=== PATIENT | male | born 1950 | race Hispanic/Latino ===

== ENCOUNTER 2017-08-06 07:26 | Emergency (ER) | payer MEDICARE ==
[2017-08-06] MEDS ORDERED: TORADOL IV ONE (10:18)
[2017-08-06 10:42] LABS: Urine Drugs of Abuse Note Disclamer
[2017-08-06 10:54] LABS: Bacteria,Urine 1+ /HPF (Negative); Bilirubin,Urine NEG (Negative); Blood,Urine SM (Negative); Ketones,Urine TR mg/dL (Negative); Leukocyte Esterase,Urine NEG (Negative); Mucus,Urine FEW /HPF; Nitrite,Urine NEG (Negative); Protein,Urine <15 mg/dL mg/dL (Negative); Urobilinogen,Urine < 2.0 mg/dL (<2.0)
[2017-08-06 11:18] LABS: Alanine Aminotransferase 26 units/L (7-56); Albumin 4.3 g/dL (3.9-5); Albumin/Globulin Ratio 1.2 %; Alkaline Phosphatase 137 units/L (35-129); Anion Gap 20 mmol/L; Blood Urea Nitrogen 20 mg/dL (9-20); Calcium 9.3 mg/dL (8.4-10.2); Carbon Dioxide 25 mmol/L (22-30); Chloride 95.9 mmol/L (98-107); Glucose 231 mg/dL (75-100); Sodium 137 mmol/L (137-145); Total Protein 7.9 g/dL (6.3-8.2)
--- NOTE | 2017-08-06 11:31 | Ultrasound Report ---
Testicular sonogram: History: Right testicular pain. Findings: Right testis measures 3 x 3.4 x 2.5 cm. Uniform echogenicity with normal color flow. The right epididymis does not appear enlarged. Cyst is noted at the head of the epididymis measuring 0.4 x 0.4 x 0.5 cm. Smaller cyst is also identified. Left testes measures 2.9 x 2.2 x 3.4 cm. Uniform echogenicity with normal color flow. No definite enlargement of the epididymis. A cyst in the head of epididymis measures 1 x 1.2 cm. There is fluid noted in the right and left scrotal sac. The fluid in the right and left scrotal sac measures approximately 1.6 cm in diameter. Impression: No definite evidence of acute epididymitis or orchitis. Findings as detailed above.
[2017-08-06 11:34] LABS: Basophils % (Auto) 0.7 % (0.0-1.8); Eosinophils % (Auto) 1.1 % (0.0-4.3); Hemoglobin 10.7 gm/dl (11.8-15.2); Mean Corpuscular HGB Conc 34 % (32-34); Mean Corpuscular Hemoglobin 29 pg (28-32); Mean Corpuscular Volume 86 fl (84-94); Platelet Count 233 K/mm3 (140-440); Red Blood Count 3.74 M/mm3 (3.65-5.03); White Blood Count 6.4 K/mm3 (4.5-11.0)
--- NOTE | 2017-08-06 14:35 | XRay Report ---
FINAL REPORT EXAM: XR CHEST ROUTINE 2V HISTORY: sob TECHNIQUE: Chest, portable PRIORS: None. FINDINGS: Limited study. Only one view submitted which excludes the lung bases. Visualized portions of the chest are clear. No pneumothorax seen IMPRESSION: Very limited. Submitted image excludes the lung bases. Visualized lungs are clear.
[2017-08-06] MEDS ORDERED: ULTRAM PO ONE (15:25)
[2017-08-06 15:30] VITALS: BP 138/82
--- NOTE | 2017-08-06 19:47 | Emergency Department Report ---
Entered by DANIEL CLAY, acting as scribe for JEANNIE SANCHEZ NP. <RIKI PASCUAL - Last Filed: 08/06/17 14:37> ED General Adult HPI - General Chief complaint: Pain General Stated complaint: PAIN Time Seen by Provider: 08/06/17 10:04 - Related Data Previous Rx's Medication Instructions Recorded Last Taken Type Aspirin [Aspirin BABY CHEW TAB] 81 mg PO QDAY #30 tab.chew 10/03/16 10/25/16 Rx Gabapentin [Neurontin] 300 mg PO Q8HR #60 capsule 10/23/16 10/25/16 Rx traMADol [Ultram] 50 mg PO Q6HR PRN #15 tablet 08/06/17 Unknown Rx Allergies Allergy/AdvReac Type Severity Reaction Status Date / Time No Known Allergies Allergy Verified 11/22/16 11:10 ED Review of Systems ROS: Stated complaint: PAIN Other details as noted in HPI ED Past Medical Hx - Medications Home Medications: Home Medications Medication Instructions Recorded Confirmed Last Taken Type Aspirin [Aspirin BABY CHEW TAB] 81 mg PO QDAY #30 tab.chew 10/03/16 10/25/16 Rx Gabapentin [Neurontin] 300 mg PO Q8HR #60 capsule 10/23/16 10/25/16 10/25/16 Rx traMADol [Ultram] 50 mg PO Q6HR PRN #15 tablet 08/06/17 Unknown Rx ED Course Vital Signs 08/06/17 08/06/17 08/06/17 07:33 10:39 15:30 Temperature 98.8 F Pulse Rate 99 H 72 Respiratory 16 20 18 Rate Blood Pressure 152/69 Blood Pressure 138/82 [Right] O2 Sat by Pulse 100 Oximetry ED Medical Decision Making - Lab Data Result diagrams: 08/06/17 10:35 08/06/17 10:35 - Medical Decision Making I have seen and examined this patient myself. I agree with the PA or MIDDLE STITCHER plan as discussed. Tre Pascual Critical care attestation.: If time is entered above; I have spent that time in minutes in the direct care of this critically ill patient, excluding procedure time. ED Disposition Clinical Impression: Chronic pain syndrome, Testicle pain Hypertension Qualifiers: Hypertension type: essential hypertension Qualified Code(s): I10 - Essential ( primary) hypertension Type 2 diabetes mellitus Qualifiers: Diabetes mellitus complication status: with neurologic complications Diabetes mellitus complication detail: with unspecified neuropathy Diabetes mellitus intermediate accountant insulin use: unspecified intermediate accountant insulin use status Qualified Code(s ): E11.40 - Type 2 diabetes mellitus with diabetic neuropathy, unspecified Disposition: DC-01 TO HOME OR SELFCARE Condition: Stable Instructions: Diabetes Mellitus Type 2 in Adults (ED), Hypertension (ED) Additional Instructions: Follow up with a PCP in the next 3-5 days You will need to be started on medication for your DM and HTN No driving or alcohol after taking Ultram for pain follow up here for your mental health needs [facility] Address: [address] , [place] [address] Hours: Open today 8AM 5PM Prescriptions: traMADol [Ultram] 50 mg PO Q6HR PRN #15 tablet PRN Reason: Pain Referrals: PRIMARY CARE, [Primary Care Provider] - 3-5 Days MARI TALAVERA MD [Staff Physician] - 3-5 Days [facility] [Outside] - 3-5 Days <JEANNIE SANCHEZ - Last Filed: 08/06/17 19:47> ED General Adult HPI - General Source: patient Mode of arrival: Stretcher Limitations: No Limitations - History of Present Illness Initial comments: 66 male presents to the ED c/o right testicle elevated x 3 days. Associated symptoms include SOB, cough, swollen throat, body aches, dysuria, and nausea but denies fever, chills, vomiting and wheezing. Pain is described as 10/10. Patient states he was in alf for 7 months and got out 3 days ago. Staying at a motel. No alleviating or aggravated factors. NKDA. PMHx of stroke, heart attack, broken back, chronic pain syndrome, diabetic nerve pain and scabies ( treated x 5). PSHx of back surgery. PT states he was falsely imprisoned for 7 months. PT states he was treated for scabies twice but was otherwise he did not get medication when he was incarcerated. PT states he does not need to know his home medications. PT states he was a assisted pt prior to this but he was signed out under false pretenses. Onset/Timin -: days(s) Location: genitals Radiation: non-radiation Severity scale (0 -10): 10 Quality: constant Consistency: constant Improves with: none Worsens with: none Associated Symptoms: cough, malaise, other (SOB, stiff neck, swollen throat, body aches, dysuria, nausea, denies: wheezing, vomiting). denies: fever/chills Treatments Prior to Arrival: none ED Review of Systems Comment: All other systems reviewed and negative Constitutional: other (body aches). denies: chills, fever ENT: other (swollen throat) Respiratory: cough, shortness of breath. denies: wheezing Gastrointestinal: nausea. denies: vomiting Genitourinary: dysuria, testicular pain (right testicle elevated) Musculoskeletal: other (chronic neck and back pain ) Psychiatric: anxiety, other (pt states he is unable to sleep ) ED Past Medical Hx - Past Medical History Hx Hypertension: Yes Hx CVA: Yes (left sided weakness) Hx Heart Attack/AMI: Yes (x6) Hx Congestive Heart Failure: Yes Hx Diabetes: Yes Hx Arthritis: Yes Hx Asthma: No Hx COPD: No Additional medical history: Atherosclerosis, restless leg syndrome, neuropathy, DDD, hyperlipidemia, back injury, Chronic pain syndrome, CAD, 2 ruptured disc in neck, spinal stenosis, osteoporsis, fibromyalgia - Surgical History Hx Coronary Stent: Yes (3) Hx Cholecystectomy: Yes Additional Surgical History: spinal stenosis - Social History Smoking Status: Never Smoker Substance Use Type: None ED Physical Exam - General Limitations: No Limitations General appearance: alert, in no apparent distress - Head Head exam: Present: atraumatic, normocephalic, normal inspection - Eye Eye exam: Present: normal appearance, PERRL, EOMI. Absent: scleral icterus, conjunctival injection, nystagmus, periorbital swelling, periorbital tenderness Pupils: Present: normal accommodation - ENT ENT exam: Present: normal exam, normal orophraynx, mucous membranes moist, normal external ear exam, other (edentulous) - Neck Neck exam: Present: normal inspection, full ROM. Absent: tenderness, meningismus, lymphadenopathy, thyromegaly - Respiratory Respiratory exam: Present: normal lung sounds bilaterally. Absent: respiratory distress, wheezes, rales, rhonchi, stridor, chest wall tenderness, accessory muscle use, decreased breath sounds, prolonged expiratory - Cardiovascular Cardiovascular Exam: Present: regular rate, normal rhythm, normal heart sounds. Absent: bradycardia, tachycardia, irregular rhythm, systolic murmur, diastolic murmur, rubs, gallop - GI/Abdominal GI/Abdominal exam: Present: soft, normal bowel sounds. Absent: distended, tenderness, guarding, rebound, rigid, diminished bowel sounds - exam: Present: testicular tenderness, other (right inguinal canal tenderness) . Absent: urethral discharge, scrotal swelling External exam: Present: other (recreation worker at bedside ) - Extremities Exam Extremities exam: Present: normal inspection, full ROM, normal capillary refill , pedal edema (right leg ). Absent: tenderness, joint swelling, calf tenderness - Back Exam Back exam: Present: normal inspection (midline lumbar scar consistent with hx of prior surgery ), full ROM. Absent: tenderness, CVA tenderness (R), CVA tenderness (L), muscle spasm, paraspinal tenderness, vertebral tenderness, rash noted - Neurological Exam Neurological exam: Present: alert, oriented X3 - Psychiatric Psychiatric exam: Present: normal affect, normal mood - Skin Skin exam: Present: warm, dry, intact, normal color. Absent: rash ED Course - Reevaluation(s) Reevaluation #1: 08/06/17 10:45 PT aware of plan of care. 08/06/17 15:15 PT remains stable while in ED. PT was seen by mental health and Dr Pascual. PT aware of US result. At this time, PT requesting medication of Percocet 10 mg and Valium 5 mg. - Pulse Oximetry Interpretation Digit-Finger Initial Pulse Oximetry Readin Actions Taken: none ED Medical Decision Making - Lab Data Result diagrams: 08/06/17 10:35 08/06/17 10:35 - EKG Data -: EKG Interpreted by Me (and ED MD ) EKG shows normal: sinus rhythm Rate: normal (BPM 88) - Radiology Data Radiology results: report reviewed cxr- visualized lung normal us- no torsion, + fluid in scrotal sac, no orchitis,or epididmitis - Differential Diagnosis torsion, uti, medication refill ED Disposition Is pt being admited?: No Does the pt Need Aspirin: No Time of Disposition: 15:24 This documentation as recorded by the DANNA hernandez ELIZABETH,accurately reflects the service I personally performed and the decisions made by me,JEANNIE SANCHEZ NP.
== END 2017-08-06 15:30 | disposition home or self-care (01) ==
LOC: ED 07:26
DX: G89.4 Chronic pain syndrome (principal); E11.40 Type 2 diabetes mellitus with diabetic neuropathy, unspecified; I10 Essential (primary) hypertension
CPT/HCPCS: 36415; 71020; 80053; 80307; 81001; 82550; 83880; 84484; 85025; 93005; 93010; 93975; 96374; 99285; G0480; J1885; 80320